=== PATIENT | male | born 1985 | race African-American/Black ===

== ENCOUNTER 2024-12-10 17:51 | Emergency (ER) | payer OTHER, MEDICAID ==
[~2024-12-10] VITALS: Ht 188 cm; Wt 100.0 kg
[~2024-12-10 17:51] MED LIST: NAPROXEN
[2024-12-10 18:01] VITALS: O2SAT 98
[2024-12-10] MEDS ORDERED: IBUP-1455 MT (19:11)
[2024-12-10] MEDS: IBUPROFEN 600MG TABLET PO ONE (19:19)
[2024-12-10 19:24] VITALS: BP 136/88; PULSE 88; RESP 18; TEMP 37.2; O2SAT 99
[2024-12-10 20:51] LABS: INFLUENZA TYPE A Presumptive Negative (Pres. Neg.); INFLUENZA TYPE B Presumptive Negative (Pres. Neg.)
[2024-12-10 20:52] LABS: RESPIRATORY SYNCYTIAL VIRUS Not Detected (Not Detectd)
== END 2024-12-10 19:27 | disposition home or self-care (01) ==
LOC: ER 17:51
DX: U07.1 COVID-19 (principal); E11.9 Type 2 diabetes mellitus without complications; J45.909 Unspecified asthma, uncomplicated
CPT/HCPCS: 87420; 87426; 87804; 99283